=== PATIENT | male | born 1935 | race Caucasian/White ===

== ENCOUNTER 2022-08-06 13:55 | Inpatient (IN) | payer OTHER, MEDICAID ==
[~2022-08-06] VITALS: Ht 165.1 cm; Wt 72.6 kg
[2022-08-06 14:00] VITALS: BP_SYST 148
[2022-08-06 15:13] LABS: ANION GAP 3 (5-15); CALCIUM 9.3 mg/dL (8.4-11.0); CHLORIDE 105 mmol/L (98-107); CREATININE 1.55 mg/dL (0.55-1.30); GLUCOSE 121 mg/dL (70-99); POTASSIUM 4.1 mmol/L (3.5-5.1); UREA NITROGEN, BLOOD 32 mg/dL (8-21)
[2022-08-06 15:20] LABS: ALANINE AMINOTRANSFERASE 16 U/L (12-78); ALBUMIN 2.8 g/dL (3.4-4.8); ASPARTATE AMINOTRANSFERASE 18 U/L (10-37); TOTAL BILIRUBIN 0.7 mg/dL (0.0-1.0)
[2022-08-06 15:27] LABS: HEMATOCRIT 30.8 % (36-54); MEAN CORPUSCULAR VOLUME 70 fL (79.0-98.0); PLATELET COUNT (AUTO) 251 K/uL (130-430); RED BLOOD CELL COUNT(AUTO) 4.41 MIL/uL (4.2-6.2); RED CELL DISTRIBUTION WIDTH 18.9 % (9.0-15.0); WHITE BLOOD COUNT (AUTO) 7.6 K/uL (4.8-10.8)
[2022-08-06 16:04] LABS: BASOPHILS % (MANUAL) 1 % (0-2); EOSINOPHILS % (MANUAL) 2 % (0-7); LYMPHOCYTES % (MANUAL) 10 % (20-46); MONOCYTES % (MANUAL) 4 % (0-11)
[2022-08-06] MEDS ORDERED: ASPIRIN 325 MG TABLET PO ONE (16:30)
[2022-08-06] MEDS ORDERED: FUROSEMIDE 40 MG/4 ML VIAL IVP ONE (16:30)
[2022-08-06 16:41] LABS: BILIRUBIN,URINE NEGATIVE (NEGATIVE); BLOOD, URINE 2+ (NEGATIVE); CLARITY/URINE CLEAR (CLEAR); COLOR,URINE YELLOW (YELLOW); GLUCOSE,URINE NEGATIVE (NEGATIVE); KETONES,URINE NEGATIVE (NEGATIVE); LEUKOCYTE ESTERASE ,URINE NEGATIVE (NEGATIVE); NITRITE, URINE NEGATIVE (NEGATIVE); PROTEIN URINE 2+ (NEGATIVE); UROBILINOGEN,URINE 0.2 (0.2-1.0)
[2022-08-06] MEDS ORDERED: ACET325T PO (17:16)
[2022-08-06 17:19] LABS: BACTERIA,URINE None Seen /HPF (None Seen); MUCUS,URINE 1+ /LPF (None Seen); RBC,URINE 20-50 /HPF (0-3); WBC,URINE NONE SEEN /HPF (0-3)
[2022-08-06] MEDS ORDERED: SIMV-343 PO (17:26)
[2022-08-06] MEDS ORDERED: POTA-197 PO (17:26)
[2022-08-06] MEDS ORDERED: MIRT-114 PO (17:26)
[2022-08-06] MEDS ORDERED: DONE10TA44 PO (17:26)
[2022-08-06] MEDS ORDERED: TRAZ-250 PO (17:26)
[2022-08-06] MEDS ORDERED: DEXT50DI5 IV (17:26)
[2022-08-06] MEDS ORDERED: LOSA50TA3 PO (17:26)
[2022-08-06] MEDS ORDERED: PRO40 PO (17:26)
[2022-08-06] MEDS ORDERED: AMLO5TAB4 PO (17:26)
[2022-08-06] MEDS ORDERED: MOM PO (17:26)
[2022-08-06] MEDS ORDERED: PRO20 PO (17:26)
[2022-08-06] MEDS ORDERED: DULCOLAX SUPP PR (17:26)
[2022-08-06] MEDS ORDERED: GLUC1VIA14 IM (17:26)
[2022-08-06] MEDS ORDERED: NA P133E41 RC (17:26)
[2022-08-06] MEDS ORDERED: DOCU-144 PO (17:26)
[2022-08-06] MEDS ORDERED: FURO-149 PO (17:26)
[2022-08-06] MEDS ORDERED: ONDANSETRON HCL 4 MG/2 ML VIAL IVP PRN (22:00)
[2022-08-06] MEDS ORDERED: NORMAL SALINE 5 ML DISP.SYRIN IVF SCH (22:00)
[2022-08-06] MEDS ORDERED: LORazepam 1 MG TABLET PO PRN (22:00)
[2022-08-06] MEDS ORDERED: MILK OF MAGNESIA 30 ML UDC PO PRN (22:00)
[2022-08-06] MEDS ORDERED: ACETAMINOPHEN 325 MG TABLET PO PRN (22:00)
[2022-08-06] MEDS ORDERED: ACETAMINOPHEN 325 MG TABLET PO SCH (22:00)
[2022-08-06] MEDS ORDERED: NALOXONE HCL 0.4 MG/ML AMP (NARCAN) IVP PRN ×2 (22:00)
[2022-08-06] MEDS: NORMAL SALINE 5 ML DISP.SYRIN IVF SCH (22:00)
[2022-08-06] MEDS ORDERED: HYDROcodone/ACETAMIN 5-325 MG TAB (NORCO/ VICODIN) PO PRN (22:00)
[2022-08-07 04:41] VITALS: BP_SYST 146
[2022-08-07] MEDS: NORMAL SALINE 5 ML DISP.SYRIN IVF SCH ×3 (05:16→22:00)
[2022-08-07] MEDS ORDERED: ACETAMINOPHEN 325 MG TABLET PO PRN (06:30)
[2022-08-07] MEDS ORDERED: PANTOPRAZOLE SODIUM 40 MG TAB PO SCH ×2 (07:00→13:20)
[2022-08-07 07:34] LABS: ANION GAP 6 (5-15); CALCIUM 8.9 mg/dL (8.4-11.0); CHLORIDE 104 mmol/L (98-107); CREATININE 1.44 mg/dL (0.55-1.30); GLUCOSE 101 mg/dL (70-99); PHOSPHORUS 3.7 mg/dL (2.7-4.5); UREA NITROGEN, BLOOD 30 mg/dL (8-21)
[2022-08-07 07:57] LABS: BASOPHILS % (AUTO) 0.6 % (0.0-2.0); EOSINOPHILS # (AUTO) 0.1 K/uL (0.0-0.4); EOSINOPHILS % (AUTO) 1.2 % (0.0-4.0); HEMATOCRIT 30.9 % (36-54); LYMPHOCYTES % (AUTO) 14.1 % (20.5-51.5); MEAN CORPUSCULAR VOLUME 71 fL (79.0-98.0); MONOCYTES # (AUTO) 0.7 K/uL (0.0-1.0); MONOCYTES % (AUTO) 9.3 % (1.7-9.3); NEUTROPHILS # (AUTO) 5.3 K/uL (1.8-7.7); PLATELET COUNT (AUTO) 246 K/uL (130-430); RED BLOOD CELL COUNT(AUTO) 4.39 MIL/uL (4.2-6.2); RED CELL DISTRIBUTION WIDTH 19.1 % (9.0-15.0); WHITE BLOOD COUNT (AUTO) 7.1 K/uL (4.8-10.8)
[2022-08-07 09:00] LABS: NEUTROPHILS % (AUTO) 74.8 % (40.0-70.0)
[2022-08-07] MEDS ORDERED: SODIUM PHOSPHATE,MONO-DIBASIC 133 ML ENEMA RC SCH (09:00)
[2022-08-07] MEDS ORDERED: POTASSIUM CHLORIDE 20 MEQ TAB.PRT.SR PO SCH (09:00)
[2022-08-07] MEDS: FUROSEMIDE 40 MG/4 ML VIAL IVP SCH (09:01)
[2022-08-07] MEDS: DOCUSATE SODIUM 100 MG CAPSULE PO SCH ×2 (09:01→23:33)
[2022-08-07] MEDS: FLUoxetine HCL 20 MG CAPSULE (PROzac) PO SCH (09:01)
[2022-08-07] MEDS: LOSARTAN POTASSIUM 50 MG TABLET (COZAAR) PO SCH (09:02)
[2022-08-07] MEDS: amLODIPine BESYLATE 5 MG TABLET PO SCH (09:02)
[2022-08-07] MEDS: HYDROcodone/ACETAMIN 10-325 MG TAB PO PRN (09:32)
[2022-08-07 13:17] VITALS: BP_SYST 163
[2022-08-07] MEDS ORDERED: POTA10TA PO (13:18)
[2022-08-07] MEDS ORDERED: BISA10SU61 RC (13:18)
[2022-08-07] MEDS ORDERED: SODIUM PHOSPHATE,MONO-DIBASIC 133 ML ENEMA RC PRN (13:22)
[2022-08-07 16:42] VITALS: BP_SYST 148
[2022-08-07] MEDS: PANTOPRAZOLE SODIUM 40 MG TAB PO SCH (18:21)
[2022-08-07 20:00] VITALS: BP_SYST 138
[2022-08-07] MEDS: DONEPEZIL HCL 5 MG TABLET (ARICEPT) PO SCH (21:00)
[2022-08-07] MEDS: SIMVASTATIN 20 MG TABLET PO SCH (21:00)
[2022-08-07] MEDS: MIRTAZAPINE 15 MG TABLET PO SCH (21:00)
[2022-08-07] MEDS: traZODone HCL 50 MG TABLET (DESYREL) PO SCH (21:00)
[2022-08-08 01:02] VITALS: BP_SYST 147
[2022-08-08] MEDS: HYDROcodone/ACETAMIN 10-325 MG TAB PO PRN (03:43)
[2022-08-08] MEDS: NORMAL SALINE 5 ML DISP.SYRIN IVF SCH ×2 (07:17→13:10)
[2022-08-08] MEDS: PANTOPRAZOLE SODIUM 40 MG TAB PO SCH ×2 (07:17→16:38)
[2022-08-08 08:10] VITALS: BP_SYST 162
[2022-08-08] MEDS: amLODIPine BESYLATE 5 MG TABLET PO SCH (08:15)
[2022-08-08] MEDS: DOCUSATE SODIUM 100 MG CAPSULE PO SCH (08:15)
[2022-08-08] MEDS: POTASSIUM CHLORIDE 10 MEQ TAB.PRT.SR PO SCH (08:15)
[2022-08-08] MEDS: FLUoxetine HCL 20 MG CAPSULE (PROzac) PO SCH (08:15)
[2022-08-08] MEDS: FUROSEMIDE 40 MG/4 ML VIAL IVP SCH (08:16)
[2022-08-08] MEDS: LOSARTAN POTASSIUM 50 MG TABLET (COZAAR) PO SCH (08:16)
[2022-08-08 11:07] LABS: HEMATOCRIT 31.2 % (36-54); MEAN CORPUSCULAR VOLUME 70 fL (79.0-98.0); PLATELET COUNT (AUTO) 227 K/uL (130-430); RED BLOOD CELL COUNT(AUTO) 4.47 MIL/uL (4.2-6.2); RED CELL DISTRIBUTION WIDTH 18.5 % (9.0-15.0); WHITE BLOOD COUNT (AUTO) 6.5 K/uL (4.8-10.8)
[2022-08-08 11:55] LABS: ALANINE AMINOTRANSFERASE 20 U/L (12-78); ALBUMIN 2.7 g/dL (3.4-4.8); ANION GAP 4 (5-15); ASPARTATE AMINOTRANSFERASE 17 U/L (10-37); CALCIUM 8.9 mg/dL (8.4-11.0); CHLORIDE 103 mmol/L (98-107); CREATININE 1.84 mg/dL (0.55-1.30); GLUCOSE 175 mg/dL (70-99); PHOSPHORUS 3.9 mg/dL (2.7-4.5); POTASSIUM 4.1 mmol/L (3.5-5.1); TOTAL BILIRUBIN 0.9 mg/dL (0.0-1.0); UREA NITROGEN, BLOOD 36 mg/dL (8-21)
[2022-08-08 12:00] VITALS: BP_SYST 157
[2022-08-08] MEDS ORDERED: CARVEDILOL 6.25 MG TABLET (COREG) PO ONE (12:15)
[2022-08-08 15:35] LABS: BASOPHILS % (MANUAL) 0 % (0-2); EOSINOPHILS % (MANUAL) 0 % (0-7); LYMPHOCYTES % (MANUAL) 13 % (20-46); MONOCYTES % (MANUAL) 11 % (0-11)
[2022-08-08 16:00] VITALS: BP_SYST 145
[2022-08-08] MEDS ORDERED: INSULIN REGULAR, HUMAN 100 UNITS/ML, 3 ML VIAL (humuLIN R) SUBCUT PRN (16:00)
[2022-08-08] MEDS ORDERED: D5W 1,000 ML IV PRN (16:15)
[2022-08-08] MEDS ORDERED: DEXTROSE 50%-WATER 50 ML DISP.SYRIN IVP PRN (16:15)
[2022-08-08] MEDS ORDERED: GLUCOSE (DEXTROSE) ORAL GEL -Adults PO PRN (16:15)
[2022-08-08 20:00] VITALS: BP_SYST 152
[2022-08-09] MEDS: MIRTAZAPINE 15 MG TABLET PO SCH ×2 (00:36→21:41)
[2022-08-09] MEDS: DONEPEZIL HCL 5 MG TABLET (ARICEPT) PO SCH ×2 (00:36→21:41)
[2022-08-09] MEDS: CARVEDILOL 6.25 MG TABLET (COREG) PO SCH ×3 (00:37→21:44)
[2022-08-09] MEDS: SIMVASTATIN 20 MG TABLET PO SCH ×2 (00:37→21:43)
[2022-08-09] MEDS: DOCUSATE SODIUM 100 MG CAPSULE PO SCH ×3 (00:37→21:41)
[2022-08-09] MEDS: traZODone HCL 50 MG TABLET (DESYREL) PO SCH ×2 (00:38→21:43)
[2022-08-09] MEDS: NORMAL SALINE 5 ML DISP.SYRIN IVF SCH ×4 (00:38→21:55)
[2022-08-09] MEDS: PANTOPRAZOLE SODIUM 40 MG TAB PO SCH ×2 (06:21→17:26)
[2022-08-09 08:00] VITALS: BP_SYST 105
[2022-08-09 09:03] LABS: ANION GAP 6 (5-15); CALCIUM 9.3 mg/dL (8.4-11.0); CHLORIDE 103 mmol/L (98-107); CREATININE 1.91 mg/dL (0.55-1.30); GLUCOSE 97 mg/dL (70-99); PHOSPHORUS 4.3 mg/dL (2.7-4.5); POTASSIUM 4.1 mmol/L (3.5-5.1); UREA NITROGEN, BLOOD 38 mg/dL (8-21)
[2022-08-09] MEDS: FLUoxetine HCL 20 MG CAPSULE (PROzac) PO SCH (09:59)
[2022-08-09] MEDS: POTASSIUM CHLORIDE 10 MEQ TAB.PRT.SR PO SCH (09:59)
[2022-08-09] MEDS: amLODIPine BESYLATE 5 MG TABLET PO SCH (10:00)
[2022-08-09] MEDS: FUROSEMIDE 40 MG/4 ML VIAL IVP SCH (10:01)
[2022-08-09] MEDS: LOSARTAN POTASSIUM 50 MG TABLET (COZAAR) PO SCH (10:02)
[2022-08-09 11:05] VITALS: BP_SYST 121
[2022-08-09 14:24] LABS: BASOPHILS # (AUTO) 0.1 K/uL (0.0-0.2); BASOPHILS % (AUTO) 0.9 % (0.0-2.0); EOSINOPHILS # (AUTO) 0.1 K/uL (0.0-0.4); EOSINOPHILS % (AUTO) 1.7 % (0.0-4.0); LYMPHOCYTES % (AUTO) 14.4 % (20.5-51.5); MEAN CORPUSCULAR VOLUME 71 fL (79.0-98.0); MONOCYTES # (AUTO) 0.6 K/uL (0.0-1.0); MONOCYTES % (AUTO) 7.9 % (1.7-9.3); NEUTROPHILS # (AUTO) 5.4 K/uL (1.8-7.7); NEUTROPHILS % (AUTO) 75.1 % (40.0-70.0); PLATELET COUNT (AUTO) 246 K/uL (130-430); RED BLOOD CELL COUNT(AUTO) 4.53 MIL/uL (4.2-6.2); RED CELL DISTRIBUTION WIDTH 18.7 % (9.0-15.0); WHITE BLOOD COUNT (AUTO) 7.2 K/uL (4.8-10.8)
[2022-08-09 16:35] VITALS: BP_SYST 138
[2022-08-10 01:08] VITALS: BP_SYST 139
[2022-08-10] MEDS: PANTOPRAZOLE SODIUM 40 MG TAB PO SCH ×2 (06:19→16:46)
[2022-08-10] MEDS: NORMAL SALINE 5 ML DISP.SYRIN IVF SCH ×3 (06:19→21:59)
[2022-08-10 07:32] VITALS: BP_SYST 138
[2022-08-10] MEDS: amLODIPine BESYLATE 5 MG TABLET PO SCH (10:15)
[2022-08-10] MEDS: CARVEDILOL 6.25 MG TABLET (COREG) PO SCH ×2 (10:16→21:58)
[2022-08-10] MEDS: DOCUSATE SODIUM 100 MG CAPSULE PO SCH ×2 (10:16→21:59)
[2022-08-10] MEDS: POTASSIUM CHLORIDE 10 MEQ TAB.PRT.SR PO SCH (10:17)
[2022-08-10] MEDS: FLUoxetine HCL 20 MG CAPSULE (PROzac) PO SCH (10:17)
[2022-08-10] MEDS: LOSARTAN POTASSIUM 50 MG TABLET (COZAAR) PO SCH (10:17)
[2022-08-10] MEDS: FUROSEMIDE 40 MG/4 ML VIAL IVP SCH (10:18)
[2022-08-10 11:35] VITALS: BP_SYST 105
[2022-08-10 11:43] LABS: ANION GAP 8 (5-15); CALCIUM 8.9 mg/dL (8.4-11.0); CHLORIDE 102 mmol/L (98-107); GLUCOSE 99 mg/dL (70-99); PHOSPHORUS 4.3 mg/dL (2.7-4.5); POTASSIUM 3.9 mmol/L (3.5-5.1); UREA NITROGEN, BLOOD 41 mg/dL (8-21)
[2022-08-10 15:30] VITALS: BP_SYST 110
[2022-08-10 15:45] LABS: BASOPHILS % (AUTO) 0.5 % (0.0-2.0); EOSINOPHILS # (AUTO) 0.2 K/uL (0.0-0.4); EOSINOPHILS % (AUTO) 2.5 % (0.0-4.0); LYMPHOCYTES # (AUTO) 0.6 K/uL (1.0-5.5); LYMPHOCYTES % (AUTO) 8.2 % (20.5-51.5); MEAN CORPUSCULAR VOLUME 72 fL (79.0-98.0); MONOCYTES # (AUTO) 0.7 K/uL (0.0-1.0); MONOCYTES % (AUTO) 9.4 % (1.7-9.3); NEUTROPHILS # (AUTO) 5.8 K/uL (1.8-7.7); NEUTROPHILS % (AUTO) 79.4 % (40.0-70.0); PLATELET COUNT (AUTO) 238 K/uL (130-430); RED BLOOD CELL COUNT(AUTO) 4.47 MIL/uL (4.2-6.2); RED CELL DISTRIBUTION WIDTH 18.6 % (9.0-15.0); WHITE BLOOD COUNT (AUTO) 7.3 K/uL (4.8-10.8)
[2022-08-10 20:00] VITALS: BP_SYST 105
[2022-08-10] MEDS: MIRTAZAPINE 15 MG TABLET PO SCH (21:44)
[2022-08-10] MEDS: traZODone HCL 50 MG TABLET (DESYREL) PO SCH (21:59)
[2022-08-10] MEDS: SIMVASTATIN 20 MG TABLET PO SCH (21:59)
[2022-08-10] MEDS: DONEPEZIL HCL 5 MG TABLET (ARICEPT) PO SCH (21:59)
[2022-08-11 00:13] LABS: BILIRUBIN,URINE NEGATIVE (NEGATIVE); BLOOD, URINE 3+ (NEGATIVE); COLOR,URINE YELLOW (YELLOW); GLUCOSE,URINE NEGATIVE (NEGATIVE); KETONES,URINE NEGATIVE (NEGATIVE); LEUKOCYTE ESTERASE ,URINE NEGATIVE (NEGATIVE); NITRITE, URINE NEGATIVE (NEGATIVE); PROTEIN URINE 2+ (NEGATIVE); UROBILINOGEN,URINE 0.2 (0.2-1.0)
[2022-08-11 00:19] LABS: CLARITY/URINE HAZY (CLEAR)
[2022-08-11 00:29] LABS: RBC,URINE 20-50 /HPF (0-3)
[2022-08-11 00:30] LABS: BACTERIA,URINE FEW /HPF (None Seen); MUCUS,URINE None Seen /LPF (None Seen); WBC,URINE 0-3 /HPF (0-3)
[2022-08-11 00:42] VITALS: BP_SYST 128
[2022-08-11] MEDS: PANTOPRAZOLE SODIUM 40 MG TAB PO SCH ×2 (06:30→18:29)
[2022-08-11] MEDS: NORMAL SALINE 5 ML DISP.SYRIN IVF SCH ×2 (06:31→18:29)
[2022-08-11 07:55] VITALS: BP_SYST 136
[2022-08-11 09:57] LABS: ALANINE AMINOTRANSFERASE 11 U/L (12-78); ALBUMIN 2.6 g/dL (3.4-4.8); ANION GAP 6 (5-15); ASPARTATE AMINOTRANSFERASE 12 U/L (10-37); CALCIUM 8.7 mg/dL (8.4-11.0); CHLORIDE 105 mmol/L (98-107); CREATININE 1.92 mg/dL (0.55-1.30); GLUCOSE 115 mg/dL (70-99); PHOSPHORUS 4.1 mg/dL (2.7-4.5); POTASSIUM 3.9 mmol/L (3.5-5.1); TOTAL BILIRUBIN 0.9 mg/dL (0.0-1.0); UREA NITROGEN, BLOOD 39 mg/dL (8-21)
[2022-08-11 11:03] LABS: BASOPHILS % (AUTO) 0.5 % (0.0-2.0); EOSINOPHILS # (AUTO) 0.2 K/uL (0.0-0.4); EOSINOPHILS % (AUTO) 2.3 % (0.0-4.0); HEMATOCRIT 31.9 % (36-54); LYMPHOCYTES # (AUTO) 0.8 K/uL (1.0-5.5); LYMPHOCYTES % (AUTO) 9.4 % (20.5-51.5); MEAN CORPUSCULAR VOLUME 70 fL (79.0-98.0); MONOCYTES # (AUTO) 0.8 K/uL (0.0-1.0); MONOCYTES % (AUTO) 9.6 % (1.7-9.3); NEUTROPHILS # (AUTO) 6.5 K/uL (1.8-7.7); PLATELET COUNT (AUTO) 214 K/uL (130-430); RED BLOOD CELL COUNT(AUTO) 4.54 MIL/uL (4.2-6.2); RED CELL DISTRIBUTION WIDTH 18.3 % (9.0-15.0); WHITE BLOOD COUNT (AUTO) 8.3 K/uL (4.8-10.8)
[2022-08-11] MEDS: POTASSIUM CHLORIDE 10 MEQ TAB.PRT.SR PO SCH (11:05)
[2022-08-11] MEDS: FLUoxetine HCL 20 MG CAPSULE (PROzac) PO SCH (11:05)
[2022-08-11] MEDS: DOCUSATE SODIUM 100 MG CAPSULE PO SCH (11:05)
[2022-08-11] MEDS: LOSARTAN POTASSIUM 50 MG TABLET (COZAAR) PO SCH (11:05)
[2022-08-11] MEDS: amLODIPine BESYLATE 5 MG TABLET PO SCH (11:05)
[2022-08-11] MEDS: CARVEDILOL 6.25 MG TABLET (COREG) PO SCH (11:06)
[2022-08-11] MEDS: FUROSEMIDE 40 MG/4 ML VIAL IVP SCH (11:07)
[2022-08-11 11:36] VITALS: BP_SYST 135
[2022-08-11 12:02] LABS: NEUTROPHILS % (AUTO) 78.2 % (40.0-70.0)
[2022-08-11 15:45] VITALS: BP_SYST 140
[2022-08-11] MEDS ORDERED: COR6.25 PO (16:54)
[2022-08-11 18:01] VITALS: BP_SYST 112
== END 2022-08-11 23:26 | DRG 291 ==
LOC: SED 13:55 → STU 17:22
PROVIDERS: ADMIT Preventive Medicine Preventive Medicine/Occupational Environmental Medicine; ATTEND Preventive Medicine Preventive Medicine/Occupational Environmental Medicine
DX: I13.0 Hypertensive heart and chronic kidney disease with heart failure and stage 1 through stage 4 chronic kidney disease, or unspecified chronic kidney disease (principal); I50.41 Acute combined systolic (congestive) and diastolic (congestive) heart failure; J96.01 Acute respiratory failure with hypoxia; N17.0 Acute kidney failure with tubular necrosis; D63.8 Anemia in other chronic diseases classified elsewhere; E11.22 Type 2 diabetes mellitus with diabetic chronic kidney disease; E11.51 Type 2 diabetes mellitus with diabetic peripheral angiopathy without gangrene; E11.65 Type 2 diabetes mellitus with hyperglycemia; E78.5 Hyperlipidemia, unspecified; E88.09 Other disorders of plasma-protein metabolism, not elsewhere classified; F03.90 Unspecified dementia, unspecified severity, without behavioral disturbance, psychotic disturbance, mood disturbance, and anxiety; G47.00 Insomnia, unspecified; K21.9 Gastro-esophageal reflux disease without esophagitis; I49.5 Sick sinus syndrome; Z20.822 Contact with and (suspected) exposure to COVID-19; N18.9 Chronic kidney disease, unspecified; Z95.0 Presence of cardiac pacemaker; Z88.8 Allergy status to other drugs, medicaments and biological substances
CPT/HCPCS: 36415; 71045; 76376; 76770; 80048; 80053; 81000; 82962; 83735; 83880; 84100; 84484; 85007; 85025; 85027; 87081; 93005; 93306; 96374; 99285; G0378; J1815; J1940